=== PATIENT | male | born 1965 | race Caucasian/White ===

== ENCOUNTER → 2021-05-19 | Outpatient (CLI) | payer BC ==
[~2021-05-19] MED LIST: IOHEXOL 240 MG/ML 50ML VIAL. PO ONE; IOHEXOL 300 MG/ML 100ML VIAL. IV ONE
--- NOTE | 2021-05-19 10:24 | RAD ---
CT ABDOMEN+PELVIS W History: Reason: Diverticulosis, SBO, Wt, loss / Spl. Instructions: omni 300 75ml omni 240 50ml / Hi story: Technique: After the administration of intravenous contrast, CT imaging was performed of the abdomen and pelvis. Multiplanar images are reviewed. Exposure: One or more of the following individualized dose reduction techniques were utilized for thi s examination: 1. Automated exposure control 2. Adjustment of the mA and/or kV according to patient size 3. Use of iterative reconstruction technique. Comparison: None Findings: Lower chest: Calcified right lower lobe pulmonary nodule, likely prior granulomatous disease. Abdomen and pelvis: The liver, spleen, adrenal glands, and gallbladder are unremarkable. No biliary d uctal dilatation. Small pancreatic body calcification, may relate to prior pancreatitis. Left mid renal hypodensity measures 1.2 x 1.3 cm. No hydronephrosis. No renal calculus. Moderate sigmoid colonic wall thickening with adjacent inflammatory changes. Inflammatory changes ex tend along the urinary bladder. No air within the urinary bladder. No abscess. No pneumoperitoneum. N o evidence of bowel obstruction. Oral contrast opacifies to the level of the cecum. Normal appendix. No pathologic lymphadenopathy. No ascites. Bones: No pathologic osseous lesions. Impression: 1. Moderate sigmoid colonic wall thickening with adjacent inflammatory changes, may represent infect ious or inflammatory colitis or diverticulitis. Recommend follow-up CT and/or colonoscopy after treat ment to evaluate for malignancy. 2. Small left renal hypodensity, may represent complicated cyst. Recommend ultrasound to further kelly luate. Electronically signed by: Jairo Staples DO (05/19/2021 10:22 AM) [facility]
== END ==
LOC: CT 08:30
PROVIDERS: ATTEND Internal Medicine Gastroenterology
DX: R91.1 Solitary pulmonary nodule (principal); K63.89 Other specified diseases of intestine; N28.89 Other specified disorders of kidney and ureter; K57.92 Diverticulitis of intestine, part unspecified, without perforation or abscess without bleeding; K56.609 Unspecified intestinal obstruction, unspecified as to partial versus complete obstruction; R63.4 Abnormal weight loss
CPT/HCPCS: 74177; Q9966; Q9967

== ENCOUNTER → 2021-07-07 | Outpatient (CLI) | payer BC ==
--- NOTE | 2021-07-07 10:20 | KCIC ---
EXAM: Renal sonogram. HISTORY: Left renal cyst. TECHNIQUE: Sonographic imaging the kidneys and bladder was performed. COMPARISON: CT dated 05/19/2021. FINDINGS: The kidneys are normal in size. There is a 1.4 cm simple appearing exophytic cyst along the lateral left kidney. There is no solid lesion. There is no hydronephrosis. The prevoid bladder volum e is 116 cc. The ureteral jets are seen. IMPRESSION: 1. 1.4 cm simple left renal cyst. Follow-up is not routinely performed for simple cysts. 2. Otherwise, unremarkable renal sonogram. Electronically signed by: Sharon Fox MD (07/07/2021 10:17 AM) [id number]
== END ==
LOC: KCIC US 09:14
PROVIDERS: ATTEND Family Medicine
DX: N28.1 Cyst of kidney, acquired (principal)
CPT/HCPCS: 76770